=== PATIENT | male | born 1990 | race Caucasian/White ===

== ENCOUNTER 2019-03-19 00:24 | Emergency (ER) | payer MEDICAID ==
[~2019-03-19] VITALS: Ht 175.3 cm; Wt 82.5 kg
[~2019-03-19 00:24] MED LIST: ALBU8.5H8 IH; AZIT250T PO; DIAZ5TAB PO; IBUP-1984 PO
[2019-03-19 00:28] VITALS: BP 132/76
[2019-03-19] MEDS ORDERED: PENI500T2 PO (02:16)
[2019-03-19] MEDS ORDERED: IBUP-1984 PO (02:16)
[2019-03-19] MEDS ORDERED: HYDR-4384 PO (22:19)
[2019-03-19] MEDS ORDERED: CLIN-96 PO (22:19)
== END 2019-03-19 02:24 | disposition home or self-care (01) ==
LOC: MERGE 00:25 → ER 00:25
DX: K02.9 Dental caries, unspecified (principal); F17.200 Nicotine dependence, unspecified, uncomplicated; Z79.899 Other long term (current) drug therapy
CPT/HCPCS: 99283

== ENCOUNTER 2019-03-19 21:56 | Emergency (ER) | payer MEDICAID ==
[~2019-03-19] VITALS: Ht 175.3 cm; Wt 75.0 kg
[~2019-03-19 21:56] MED LIST changes: +PENI500T2 PO
[2019-03-19 22:01] VITALS: BP 146/92
[2019-03-19] MEDS ORDERED: clindamycin phosphate 150mg/ml inj. IM ONE (22:15)
[2019-03-19] MEDS ORDERED: CLIN-96 PO (22:19)
[2019-03-19] MEDS ORDERED: HYDR-4384 PO (22:19)
[2019-03-19] MEDS ORDERED: HYDROcodone/acetaminophen 5mg/325mg tablet PO ONE (22:20)
== END 2019-03-19 22:31 | disposition home or self-care (01) ==
LOC: ER 21:56 → MERGE 21:56 → ER 22:31
DX: K02.9 Dental caries, unspecified (principal); F17.200 Nicotine dependence, unspecified, uncomplicated; Z79.2 Long term (current) use of antibiotics; Z79.899 Other long term (current) drug therapy
CPT/HCPCS: 96372; 99283; J3490

== ENCOUNTER 2020-11-19 15:05 | Emergency (ER) | payer MEDICAID ==
[~2020-11-19] VITALS: Ht 177.8 cm; Wt 86.8 kg
[~2020-11-19 15:05] MED LIST changes: +CLIN-97 PO; -PENI500T2 PO
[2020-11-19 15:11] VITALS: BP 150/80
[2020-11-19 15:59] LABS: BASOPHILS % (AUTO) 0.4 % (0-1); EOSINOPHILS # (AUTO) 0.3 X10'3 (0-0.9); EOSINOPHILS % (AUTO) 2.8 % (0-6); HEMATOCRIT 49.6 % (42.0-52.0); HEMOGLOBIN 16.9 g/dl (14.0-17.9); LYMPHOCYTES # (AUTO) 2.6 X10'3 (1.1-4.8); LYMPHOCYTES % (AUTO) 23.7 % (21-51); MEAN CORPUSCULAR HEMOGLOBIN 32.1 PG (27.0-31.0); MEAN CORPUSCULAR HGB CONC 34.1 g/dL (33.0-36.5); MEAN PLATELET VOLUME 9.1 FL (7.4-10.4); MONOCYTES # (AUTO) 0.7 X10'3 (0-0.9); MONOCYTES % (AUTO) 6.6 % (2-12); NEUTROPHILS # (AUTO) 7.2 X10'3 (1.8-7.7); NEUTROPHILS % (AUTO) 66.5 % (42-75); PLATELET COUNT 171 X10'3 (140-440); RED BLOOD COUNT 5.27 X10'6 (4.70-6.10); RED CELL DISTRIBUTION WIDTH 13.5 % (11.5-14.5); WHITE BLOOD COUNT 10.8 X10'3 (4.5-11.0)
[2020-11-19 16:00] LABS: CLARITY,URINE CLEAR (Clear); COLOR,URINE YELLOW (Yellow); GLUCOSE, URINE NEGATIVE (Neg); KETONES,URINE NEGATIVE (Neg); LEUKOCYTE ESTERASE ,URINE NEGATIVE (Neg); NITRITES, URINE NEGATIVE (Neg); OCCULT BLOOD,URINE NEGATIVE (Neg); PROTEIN,URINE NEGATIVE (Neg)
[2020-11-19 16:01] LABS: UA COLLECTION TYPE CLN CATCH MIDSTREAM
[2020-11-19 16:22] LABS: ALANINE AMINOTRANSFERASE 91 U/L (12-78); ALBUMIN/GLOBULIN RATIO 1.3 (1.1-1.5); ALKALINE PHOSPHATASE 85 IU/L (46-116); ANION GAP 8 (8-16); ASPARTATE AMINO TRANSFERASE 36 U/L (10-37); BILIRUBIN,TOTAL 0.5 MG/DL (0.1-1.0); BLOOD UREA NITROGEN 10 MG/DL (7-18); BUN/CREATININE RATIO 8.8 (5.4-32.0); CALCIUM 8.9 MG/DL (8.5-10.1); CHLORIDE 104 MMOL/L (99-107); CREATININE 1.14 MG/DL (0.60-1.10); GLUCOSE 118 MG/DL (70-104); POTASSIUM 3.8 MMOL/L (3.5-5.1); SODIUM 142 MMOL/L (135-145); TOTAL CARBON DIOXIDE 30.2 MMOL/L (24-32); TOTAL PROTEIN 7.2 G/DL (6.4-8.2); eGFR 75 ML/MIN
[2020-11-19 16:24] LABS: AMYLASE 19 U/L (25-115); LIPASE 58 U/L (73-393)
== END 2020-11-19 18:28 | disposition left against medical advice (07) ==
LOC: ER 15:06
DX: R10.9 Unspecified abdominal pain (principal); Z53.21 Procedure and treatment not carried out due to patient leaving prior to being seen by health care provider
CPT/HCPCS: 36415; 80053; 81003; 82150; 83690; 85025

== ENCOUNTER 2020-12-25 16:58 | Emergency (ER) | payer MEDICAID ==
[~2020-12-25] VITALS: Ht 175.3 cm; Wt 86.9 kg
[2020-12-25 17:09] VITALS: BP 135/74
[2020-12-25 17:39] LABS: BASOPHILS % (AUTO) 0.3 % (0-1); EOSINOPHILS # (AUTO) 0.3 X10'3 (0-0.9); HEMATOCRIT 48.2 % (42.0-52.0); HEMOGLOBIN 16.3 g/dl (14.0-17.9); LYMPHOCYTES # (AUTO) 2.5 X10'3 (1.1-4.8); LYMPHOCYTES % (AUTO) 29.4 % (21-51); MEAN CORPUSCULAR HEMOGLOBIN 31.7 PG (27.0-31.0); MEAN CORPUSCULAR HGB CONC 33.9 g/dL (33.0-36.5); MEAN CORPUSCULAR VOLUME 93.5 FL (78-98); MONOCYTES # (AUTO) 0.5 X10'3 (0-0.9); MONOCYTES % (AUTO) 6.1 % (2-12); NEUTROPHILS # (AUTO) 5.1 X10'3 (1.8-7.7); NEUTROPHILS % (AUTO) 60.2 % (42-75); PLATELET COUNT 183 X10'3 (140-440); RED BLOOD COUNT 5.16 X10'6 (4.70-6.10); RED CELL DISTRIBUTION WIDTH 13.5 % (11.5-14.5); WHITE BLOOD COUNT 8.5 X10'3 (4.5-11.0)
[2020-12-25 17:57] LABS: ALANINE AMINOTRANSFERASE 81 U/L (12-78); ALBUMIN 3.7 G/DL (3.4-5.0); ALBUMIN/GLOBULIN RATIO 1.2 (1.1-1.5); ALKALINE PHOSPHATASE 69 IU/L (46-116); ANION GAP 9 (8-16); ASPARTATE AMINO TRANSFERASE 28 U/L (10-37); BILIRUBIN,TOTAL 0.3 MG/DL (0.1-1.0); BLOOD UREA NITROGEN 10 MG/DL (7-18); BUN/CREATININE RATIO 8.8 (5.4-32.0); CALCIUM 8.7 MG/DL (8.5-10.1); CHLORIDE 106 MMOL/L (99-107); CREATININE 1.13 MG/DL (0.60-1.10); GLUCOSE 135 MG/DL (70-104); LIPASE 74 U/L (73-393); POTASSIUM 3.6 MMOL/L (3.5-5.1); SODIUM 141 MMOL/L (135-145); TOTAL CARBON DIOXIDE 26.1 MMOL/L (24-32); TOTAL PROTEIN 6.9 G/DL (6.4-8.2); eGFR 76 ML/MIN
== END 2020-12-26 02:52 | disposition left against medical advice (07) ==
LOC: ER 16:59
DX: R10.9 Unspecified abdominal pain (principal); Z53.21 Procedure and treatment not carried out due to patient leaving prior to being seen by health care provider
CPT/HCPCS: 36415; 80053; 83690; 85025

== ENCOUNTER 2021-03-14 05:17 | Emergency (ER) | payer MEDICAID ==
[~2021-03-14] VITALS: Ht 175.3 cm; Wt 81.8 kg
[~2021-03-14 05:17] MED LIST changes: +ALBU8.5H17 IH; -ALBU8.5H8 IH
[2021-03-14 05:31] VITALS: BP 148/98
[2021-03-14] MEDS ORDERED: PENI500T2 PO (05:49)
== END 2021-03-14 06:12 | disposition home or self-care (01) ==
LOC: ER 05:17
DX: K08.89 Other specified disorders of teeth and supporting structures (principal); J45.909 Unspecified asthma, uncomplicated; G89.29 Other chronic pain; Z87.01 Personal history of pneumonia (recurrent); Z98.890 Other specified postprocedural states; Z72.89 Other problems related to lifestyle; Z56.0 Unemployment, unspecified; Z79.2 Long term (current) use of antibiotics; Z79.899 Other long term (current) drug therapy
CPT/HCPCS: 99283

== ENCOUNTER 2022-02-18 15:02 | Emergency (ER) | payer MEDICAID ==
[~2022-02-18] VITALS: Ht 175.3 cm; Wt 89.5 kg
[2022-02-18 15:16] VITALS: BP 142/87
== END 2022-02-18 17:21 | disposition left against medical advice (07) ==
LOC: ER 15:03
DX: R07.81 Pleurodynia (principal); Z53.21 Procedure and treatment not carried out due to patient leaving prior to being seen by health care provider
CPT/HCPCS: 71046

== ENCOUNTER 2022-02-28 23:05 | Emergency (ER) | payer MEDICAID ==
[~2022-02-28] VITALS: Ht 177.8 cm; Wt 87.6 kg
[2022-03-01] MEDS ORDERED: dexamethasone 4mg tablet PO ONE (01:35)
[2022-03-01] MEDS ORDERED: acetaminophen 325mg tablet PO ONE (01:35)
[2022-03-01] MEDS ORDERED: ALBU6.7H9 INH (01:35)
[2022-03-01] MEDS ORDERED: albuterol 2.5 MG/3 ML nebule NEB ONE (01:35)
[2022-03-01 02:55] VITALS: BP 120/74
== END 2022-03-01 02:57 | disposition home or self-care (01) ==
LOC: ER 23:05
DX: J06.9 Acute upper respiratory infection, unspecified (principal); B34.9 Viral infection, unspecified; G89.29 Other chronic pain; M54.9 Dorsalgia, unspecified; J45.909 Unspecified asthma, uncomplicated; Z56.0 Unemployment, unspecified; Z98.890 Other specified postprocedural states; Z79.899 Other long term (current) drug therapy; Z79.1 Long term (current) use of non-steroidal anti-inflammatories (NSAID)
CPT/HCPCS: 71046; 93005; 94640; 99283

== ENCOUNTER 2023-07-25 13:10 | Emergency (ER) | payer MEDICAID ==
[~2023-07-25] VITALS: Ht 175.3 cm; Wt 84.0 kg
[~2023-07-25 13:10] MED LIST changes: +ALBU6.7H14 INH
[2023-07-25 13:14] VITALS: BP 138/84; PULSE 105; RESP 18; TEMP 97.6; O2SAT 100
[2023-07-25] MEDS ORDERED: acetaminophen 325mg tablet PO ONE (13:45)
[2023-07-25] MEDS ORDERED: cephalexin 250mg capsule PO ONE (13:45)
[2023-07-25] MEDS ORDERED: CEPH500C82 PO (13:46)
== END 2023-07-25 14:52 | disposition home or self-care (01) ==
LOC: ER 13:11
DX: L03.811 Cellulitis of head [any part, except face] (principal); R51.9 Headache, unspecified; I10 Essential (primary) hypertension; J45.909 Unspecified asthma, uncomplicated; Z79.2 Long term (current) use of antibiotics; Z79.899 Other long term (current) drug therapy
CPT/HCPCS: 99283

== ENCOUNTER 2025-05-17 09:29 | Inpatient (IN) | payer MEDICAID ==
[~2025-05-17] VITALS: Ht 175.3 cm; Wt 84.3 kg
[~2025-05-17 09:29] MED LIST changes: +CLIN-224 PO; -CLIN-97 PO
[2025-05-17 11:37] LABS: MEAN PLATELET VOLUME 8.6 FL (7.4-10.4); RED CELL DISTRIBUTION WIDTH 13.0 % (11.5-14.5)
[2025-05-17 11:51] LABS: CREATININE 1.12 MG/DL (0.60-1.10); TOTAL CARBON DIOXIDE 32.2 MMOL/L (24-32); eCRCL 92 ML/MIN; eGFR 75 ML/MIN
[2025-05-17] MEDS ORDERED: iohexol 300mg/ml 100ml inj. ONE (12:28)
--- NOTE | 2025-05-17 12:38 | Physician Documentation ---
History of Present Illness ~ Chief Complaint: Abscess Stated Complaint: R ARM INFECTION Time Seen by MD: 10:38 Primary Medical Doctor: [facility] HPI Patient is a 34-year-old male that presents to the emergency department for evaluation of right elbow pain x3 days. Patient reports he has an area of swelling on his elbow it has become progressively painful over the last couple of days. Patient reports warmth difficulty with range of motion but is able to demonstrate range of motion here in the emergency department. Patient denies fever chills nausea vomiting diarrhea does report being very cold but is not sure that he has had chills. Patient is a feeling of infection and feels like it is starting to go through his body and not stay localized to his arm. Patient appears very lethargic here in the emergency department. Vital signs are currently stable. Patient denies any illicit drug use or alcohol use at this time. Patient is very pleasant and cooperative. Due to presentation. Concern for severe cellulitis or or abscess versus septic joint at this time. Tetanus Within 5 Years: No (UNK) Medication Reconciliation Allergies: Coded Allergies: No Known Allergies (Unverified , 05/17/25) Scheduled Albuterol Sulfate (Proventil Hfa), 2 PUFFS INH Q6H Azithromycin (Zithromax), 1 DOSPAK PO UD Clindamycin HCL* (Clindamycin HCL*), 1 CAP PO Q6H Diazepam (Valium), 1 TABLET PO BID Scheduled PRN Albuterol Sulfate (Proair Hfa), 2 PUFFS IH Q4H PRN for SOB or wheezing Ibuprofen* (Motrin*), 800 MG PO TID PRN Past Medical History Past Medical History: Hypertension, Asthma, Pneumonia, Hernia, Chronic Back Pain Past Surgical History: abdominal surgery Other Past Surgical History: hernia Smoking Status: Never smoker Alcohol Use: Occasionally Drug Use: none Lives with: S/O Lives In: Home Occupation: unemployed Review of Systems ROS As stated above in the HPI, otherwise all systems are reviewed and negative. Physical Exam Vital Signs: Temperature: 97.3, Source: Temporal, Heart Rate: 95, Respiratory Rate: 18, BP: 143/75, Pulse Oximetry: 98, Weight: 84.300 Physical Exam VITALS: Reviewed and as above. GENERAL: Alert, no apparent distress. HEENT: Normocephalic, atraumatic, PERRL, EOMI, dry mucosa, no erythema RESPIRATORY: Lungs clear, normal breath sounds, no respiratory distress. CHEST: No accessory muscle use, no retractions CV: Regular rate, rhythm, no edema, no murmur, No: JVD GI: Soft, non-tender, bowels sounds present, no rebound, guarding, or rigidity BACK: No CVA tenderness, or swelling MUSCULOSKELETAL No deformities, no edema SKIN: Warm and dry, significant area of erythema warmth and edema noted to the right elbow, patient is able to demonstrate range of motion although reduced, patient reports significant pain during examination. NEURO: Oriented x4, No motor or sensory deficit PSYCH: Normal mood and affect, no agitation Progress Results/Orders Results/Orders Orders - RUTH ANN BARLOW PIPE THREADER Ct Upper Extremities (05/17/25 12:38) Culture Blood (05/17/25 12:39) Us Non Vascular (05/17/25 ) Completed Orders - RUTH ANN BARLOW P[employer] Cbc/Diff (05/17/25 11:15) CMP (05/17/25 11:15) Ct Upper Extremities (05/17/25 12:38) Iohexol 300mg/Ml 100ml Inj. (Omnipaque-3 (05/17/25 12:28) ESR (05/17/25 12:39) LA (05/17/25 12:39) Normal Saline 1000ml (0.9% Sodium Chlori (05/17/25 12:50) C-Reactive Protein (05/17/25 11:23) Us Non Vascular (05/17/25 ) Medications Received in ER Medications (Trade) Dose Ordered Sig/Anju Route PRN Reason Start Time Stop Time Status Last Admin Dose Admin Sodium Chloride 1,000 ml @ 1,000 mls/hr ONCE ONCE IV 05/17/25 12:50 05/17/25 13:49 DC 05/17/25 13:51 1,000 MLS/HR Ceftriaxone Sodium/Dextrose 50 ml @ 100 mls/hr ONCE ONCE IV 05/17/25 13:15 05/17/25 13:44 DC 05/17/25 13:51 100 MLS/HR Vancomycin HCl 250 ml @ 166 mls/hr ONCE ONCE IV 05/17/25 13:15 05/17/25 14:45 DC 05/17/25 13:59 166 MLS/HR Vital Signs 05/17/25 05/17/25 05/17/25 05/17/25 09:40 12:35 14:06 14:49 Temp 97.3 97.8 Pulse 95 100 97 93 Resp 18 16 18 24 B/P (MAP) 143/75 142/78 (99) 129/68 (88) 128/64 (85) Pulse Ox 98 97 97 94 O2 Flow Rate 0 0 0 05/17/25 14:49 Resp 16 B/P (MAP) Laboratory Tests Test 05/17/25 11:23 White Blood Count 14.4 H Red Blood Count 4.88 Hemoglobin 15.4 Hematocrit 44.1 Mean Corpuscular Volume 90.4 Mean Corpuscular Hemoglobin 31.5 H Mean Corpuscular Hemoglobin Concent 34.9 Red Cell Distribution Width 13.0 Platelet Count 197 Mean Platelet Volume 8.6 Neutrophils (%) (Auto) 77.5 H Lymphocytes (%) (Auto) 14.6 L Monocytes (%) (Auto) 6.3 Eosinophils (%) (Auto) 1.2 Basophils (%) (Auto) 0.4 Neutrophils # (Auto) 11.2 H Lymphocytes # (Auto) 2.1 Monocytes # (Auto) 0.9 Eosinophils # (Auto) 0.2 Basophils # (Auto) 0.1 CBC Comment Erythrocyte Sedimentation Rate 7 Sodium Level 138 Potassium Level 4.1 Chloride Level 100 Carbon Dioxide Level 32.2 H Anion Gap 6 L Blood Urea Nitrogen 10 Creatinine 1.12 H Estimated GFR/1.73 m2 75 BUN/Creatinine Ratio 8.9 L Glucose Level 101 Lactic Acid Level 0.6 Calcium Level 8.8 Total Bilirubin 0.6 Aspartate Amino Transf (AST/SGOT) 18 Alanine Aminotransferase (ALT/SGPT) 28 Alkaline Phosphatase 93 C-Reactive Protein 4.83 H Total Protein 7.7 Albumin 4.1 Globulin 3.6 Albumin/Globulin Ratio 1.1 Chemistry Comments Microbiology Date/Time Source Procedure Growth Status 05/17/25 11:23 Blood Arm Left Blood Culture - Preliminary NEGATIVE (LESS THAN 24 HOURS) Resulted Medical Decision Making Additional information obtaine: other Findings 34-year-old male presents with 3 days of right elbow pain, progressive swelling, warmth, and decreased range of motion. He denies fever, chills, nausea, vomiti ng, or diarrhea, but reports chills and lethargy. He is concerned about infection spread. On exam, the elbow is erythematous, swollen, and tender with limited ROM. He experienced transient hypotension after IV placement and remains lethargic, though vital signs are currently stable. No history of IVDU or alcohol use. Differential diagnosis includes: Septic arthritis of the elbow Complicated soft tissue abscess Cellulitis with deep extension Olecranon bursitis (septic) Osteomyelitis Medical decision-making: Septic arthritis is an orthopedic emergency requiring prompt diagnosis and intervention to prevent joint destruction and systemic complications. The clinical presentation (acute monoarticular pain, swelling, warmth, restricted ROM, and systemic symptoms) is highly concerning for septic arthritis, though complicated abscess remains in the differential. Physical exam and history are suggestive but not definitive; laboratory markers (WBC, ESR, CRP) may support diagnosis but are not specific. Arthrocentesis is the gold standard for diagnosis, with synovial WBC >50,000/mm and positive Gram stain/culture supporting septic arthritis. Bcwcc-fg-oped ultrasound may help distinguish abscess from joint effusion, but cross-sectional imaging (CT or MRI) is indicated if the diagnosis remains unclear or to evaluate for deep abscess, osteomyelitis, or soft tissue involvement. Blood cultures should be obtained prior to antibiotics. If septic arthritis is suspected, empiric IV antibiotics should be started promptly after cultures, as per Infectious Diseases Society of [place] recommendations. Early orthopedic consultation is warranted for possible surgical irrigation and debridement if septic arthritis is confirmed or if there is a deep abscess requiring source control. Empiric antibiotics should cover Staphylococcus aureus (including MRSA) and Streptococcus species, as these are the most common pathogens in septic elbow and complicated abscesses. Monitor for clinical instability given the episode of hypotension and ongoing lethargy, which may indicate early sepsis or systemic involvement. Plan: Labs: CBC, ESR, CRP, blood cultures, basic metabolic panel. Imaging: Sqitb-vu-bhsv ultrasound of elbow; consider CT/MRI if diagnosis remains unclear or to evaluate for deep infection. Arthrocentesis of elbow joint for cell count, Gram stain, culture, and crystals. Initiate empiric IV antibiotics after cultures obtained. Orthopedic consult for possible surgical intervention. Monitor hemodynamics and reassess for clinical deterioration. Risk/benefit discussion: The risk of delayed diagnosis and treatment of septic arthritis includes irreversible joint damage, systemic sepsis, and increased morbidity. Early intervention is essential for optimal outcomes. Differential Dx:Considerations: Include: Abscess, Bacteremia, Cellulitis, Erysipelas, Felon, Gas gangrene, Hidrademitis suppurativa, Impetigo, Lymphangitis, Osteromyelitis, Paronychia, Septicemia, Other Departure Disposition: 09 ADMITTED INPATIENT Admission Level of Care: Med/Surg Impression: Primary Impression: Cellulitis Condition: Stable Discharge Instructions: Cellulitis, Adult, [id number]-[id number] Additional Instructions: Admit to hospital for evaluation and management of right elbow infection (cellulitis/abscess/septic joint). Isolation: Standard precautions. Vital signs: Monitor every 4 hours; alert provider for fever, tachycardia, hypotension, or respiratory distress. IV access: Establish for fluids, labs, and antibiotics. Laboratory studies: CBC with differential, CMP, blood cultures prior to antibiotics, ESR/CRP, lactate. Consider synovial fluid analysis if joint effusion is present. Imaging: Obtain ezqls-en-nbte ultrasound of the right elbow to assess for abscess, bursal fluid, or joint effusion. X-ray if concern for osteomyelitis. Consults: Early orthopedic or general surgery consult if septic joint or abscess suspected. Antibiotics: Start empiric IV antibiotics with coverage for streptococci and MSSA. If severe infection or risk factors for MRSA (rapid progression, immunocompromise, prior MRSA, injection drug use), initiate vancomycin plus piperacillin-tazobactam or cefepime per IDSA guidelines. Wound care: Elevate affected limb. Pako area of erythema for monitoring progression. If abscess confirmed, arrange for incision and drainage. Monitoring: Assess for clinical improvement within 48-72 hours. Extend antibiotics if no improvement at 5 days. Other: Maintain hydration and pain control. Monitor for signs of necrotizing infection (rapid progression, severe pain, systemic toxicity). Patient education: Explain diagnosis, treatment plan, and warning signs for worsening infection. Rationale: Admission is indicated due to lethargy, progressive symptoms, and concern for severe soft tissue infection or septic joint, requiring IV antibiotics, close monitoring, and possible surgical intervention. Referrals: NO PRIMARY CARE PROVIDER (PCP) Education Educated: Patient Educated regarding: diagnosis, treatment, need for follow up Signature Scribe Signature: A Attestation: Scribed for Ruth Ann Barlow by JUANCARLOS Paredes . 05/17/25 15:57 RUTH ANN BARLOW May 17, 2025 12:37
--- NOTE | 2025-05-17 13:00 | RADIOLOGY REPORT ---
COMPUTERIZED TOMOGRAPHY OF THE RIGHT UPPER EXTREMITY WITH CONTRAST REASON FOR EXAM: Elbow COMPARISON: None TECHNIQUE: The exam was performed on a Multidetector scanner. Spiral scans were acquired THROUGH THE RIGHT ELBOW after administration of IV contrast. 2-D coronal and sagittal reformatted images were provided. Radiation optimization: All CT scans at this facility use at least one of these dose optimization techniques: Automated exposure control mA and/or kV adjustment per patient size (includes targeted exams where dose is matched to clinical indication) or iterative reconstruction. CONTRAST ADMINISTRATION: 100 mL OMNIPAQUE 300 intravenously RADIATION DOSE: CTDI: 3 mGy DLP: 111 mGy-cm FINDINGS: There is no acute fracture or dislocation. No bony cortical erosion is identified. There is no elbow joint effusion. There is severe edema in the subcutaneous fat dorsal to the elbow with overlying skin thickening. There is no organized fluid collection currently. There is no abnormal muscular enhancement. IMPRESSION: Severe edema of the soft tissues dorsal to the elbow. No organized fluid collection at this time.
[2025-05-17] MEDS ORDERED: CefTRIAXone/D5W-Rocephin 1gm 50 ML IV ONE (13:05)
[2025-05-17] MEDS: CefTRIAXone 2gm/D5W 50ml BAG 50 ML IV ONE (13:51)
[2025-05-17] MEDS: normal saline 1000ml 1,000 ML IV ONE (13:51)
[2025-05-17] MEDS: vancomycin/NS 1 GM ADD-VANTAGE 250 ML IV ONE (13:59)
--- NOTE | 2025-05-17 14:29 | RADIOLOGY REPORT ---
ULTRASOUND SOFT TISSUE: REASON FOR EXAM: Right elbow swelling/erythema TECHNIQUE: Real-time sector scans in the transverse and longitudinal planes were obtained through the area of concern at the dorsal aspect of the right elbow. FINDINGS: There is diffuse and severe edema in the subcutaneous fat at the dorsum of the elbow. There is no fluid collection identified. There is hyperemia of the edematous tissue. IMPRESSION: Severe edema of the soft tissues at the dorsum of the elbow. No abscess is identified. Findings are concerning for cellulitis.
[2025-05-17] MEDS ORDERED: NO HOME MEDS (16:09)
[2025-05-17] MEDS ORDERED: potassium Cl 20 mEq SR tablet PO PRN ×2 (16:30)
[2025-05-17] MEDS ORDERED: magnesium Cl slow-release 64mg tablet PO PRN (16:30)
[2025-05-17] MEDS ORDERED: HYDROcodone/acetaminophen 5mg/325mg tablet PO PRN (16:30)
[2025-05-17] MEDS ORDERED: magnesium sulf-water 2g/50mL 50 ML IV PRN (16:30)
[2025-05-17] MEDS ORDERED: potassium Cl 40MEQ/1/2NS 520ml 520 ML IV PRN (16:30)
[2025-05-17] MEDS ORDERED: magnesium sulf-water 4G/100mL 100 ML IV PRN (16:30)
[2025-05-17] MEDS ORDERED: ondansetron/PF 4mg/2ml inj IV PRN (16:30)
--- NOTE | 2025-05-17 16:30 | HISTORY AND PHYSICAL ---
History & Physical Providers to ~ History of Present Illness Reason for Admit\Complaint: RIGHT ELBOW PAIN History of Present Illness 34 years old male presented to the ER for evaluation of right elbow pain x3 days. Patient states that it started with an area of swelling which is now getting progressively worse in his warm with decreased range of motion of his right elbow. He denies having any fever chills nausea vomiting abdominal pain chest pain dysuria frequency urgency hematuria melena or bright red blood per rectum. Patient has been admitted for right elbow cellulitis/ olecranon bursitis . Allergies: Coded Allergies: No Known Allergies (Unverified , 05/17/25) Home Medications Home Medications Active Reported No Home Medications (Home Med List) Each Past Medical History Past Medical History Hypertension, asthma, chronic back pain Past Surgical History Surgical History Comment Abdominal surgery Family History Family History: Family history was reviewed; no changes noted. Past Social History Social History Comment Does not smoke, drinks occasionally, does not do any drugs. Health Maintenance Health Maintenance Not current on his immunizations ROS ROS All other systems are reviewed and negative except as mentioned in HPI Exam Vitals: Vital Signs Date Time Temp Pulse Resp B/P (MAP) Pulse Ox O2 Delivery O2 Flow Rate FiO2 05/17/25 16:09 94 16 106/48 (67) 98 0 05/17/25 14:49 97.8 General: Awake alert cooperative in no acute distress HEENT: Normocephalic atraumatic pupils round reactive to light and accommodation, extraocular movements intact, sclera anicteric, conjunctiva pinkish, moist oral mucosa, no rash or ulcers. Neck: Supple, no JVD, trachea midline, no lymphadenopathy. Chest: Clear to auscultation, no wheezes crackles or rhonchi. Cardiovascular: Regular rate rhythm, no murmur gallop or rub. Abdomen: Soft nontender, no organomegaly. Extremities: No cyanosis clubbing or edema. Central Nervous System: Exam is nonfocal. Musculoskeletal: No joint swelling or deformities Skin: Erythema of the right elbow , with tender indurated swelling and erythema extending up the arm and on the forearm. Diagnostic Data Last Recorded Lab Results: 05/17/25 1123 05/17/25 1123 Additional Plan 34 years old male presented to the ER for evaluation of right elbow pain and swelling # right elbow cellulitis: Start on IV antibiotics . Patient failed outpatient antibiotic treatment. # hypertension: IV hydralazine. # Code status: Full code Date of Service: May 17, 2025 Billing Provider: MELONIE MAURER MD Common Visit Codes: [id number] INP/OBS CARE (MOD) MELONIE MAURER MD May 17, 2025 16:29
[2025-05-17] MEDS: normal saline 1000ml 1,000 ML IV SCH (17:50)
[2025-05-17] MEDS: VANCOMYCIN 2GM/400ML H20 (PEG) 400 ML IV ONE (17:50)
[2025-05-17] MEDS: K and/or MAG REPLACEMENT MC SCH (18:50)
[2025-05-17] MEDS: docusate sod 100mg capsule PO SCH (18:51)
[2025-05-17 22:00] VITALS: BP 130/51; PULSE 91; RESP 16; TEMP 99.1; O2SAT 97
[2025-05-17 22:11] VITALS: RESP 16; O2SAT 97
[2025-05-18] MEDS: VANCOmycin 1250MG/NS 250ml Bag 250 ML IV SCH (04:40)
[2025-05-18 05:00] VITALS: BP 118/67; PULSE 88; RESP 16; TEMP 99.4; O2SAT 97
[2025-05-18 05:08] LABS: MEAN PLATELET VOLUME 8.6 FL (7.4-10.4); RED CELL DISTRIBUTION WIDTH 13.2 % (11.5-14.5)
[2025-05-18 05:22] LABS: CREATININE 0.97 MG/DL (0.60-1.10); TOTAL CARBON DIOXIDE 31.6 MMOL/L (24-32); eCRCL 106 ML/MIN; eGFR 88 ML/MIN
[2025-05-18 10:00] VITALS: BP 125/60; PULSE 55; RESP 21; TEMP 97.4; O2SAT 100
[2025-05-18] MEDS: FLU VACC TS2025-26(6MOS UP)/PF (FLULAVAL) 45 MCG/0.5 ML SYRINGE IMVAC ONE (12:00)
--- NOTE | 2025-05-18 15:04 | PROGRESS NOTE ---
Daily Progress Note Providers to CC ~ Antibiotic Timeout Antibiotic Ordered?: Yes Subjective No new complaints, patient is seen resting comfortably. Objective Vital Signs Date Time Temp Pulse Resp B/P (MAP) Pulse Ox O2 Delivery O2 Flow Rate FiO2 05/18/25 10:00 97.4 55 21 125/60 (81) 100 Room Air 05/18/25 08:20 0.0 Result Diagram: 05/18/2543505/18/25435 Awake alert oriented HEENT normocephalic atraumatic Neck supple, no JVD Chest CTA , No wheezes crackles or rhonchi Heart RRR Abdomen soft , nontender no organomegaly No C/C/E Nonfocal Right elbow swelling, tender induration, erythema extending up the arm and on the forearm. Other Results Medications reviewed Problem\Assessment\Plan 34 years old male presented to the ER for evaluation of right arm pain and swelling # right elbow cellulitis: Continue IV vancomycin. With add IV Zosyn. I have left a message for Dr. Erickson and I am awaiting a call back. # Code status Full code. Date of Service: May 18, 2025 Billing Provider: MELONIE MAURER MD Common Visit Codes: [id number] INP/OBS CARE(MOD) MELONIE MAURER MD May 18, 2025 15:04
[2025-05-18] MEDS: piperacillin/tazo 3.375gm/50ml 50 ML IV SCH (16:18)
[2025-05-18 18:00] VITALS: BP 110/74; PULSE 100; RESP 18; TEMP 97.7; O2SAT 100
[2025-05-18 20:00] VITALS: RESP 18; O2SAT 100
[2025-05-18 22:00] VITALS: BP 119/66; PULSE 92; RESP 16; TEMP 98.3; O2SAT 97
[2025-05-19] MEDS: VANCOMYCIN LEVEL IV ONE (04:30)
[2025-05-19 05:57] VITALS: BP 118/63; PULSE 74; RESP 18; TEMP 98.3; O2SAT 97
[2025-05-19 06:46] LABS: MEAN PLATELET VOLUME 9.2 FL (7.4-10.4); RED CELL DISTRIBUTION WIDTH 13.0 % (11.5-14.5)
[2025-05-19 06:52] LABS: CREATININE 1.01 MG/DL (0.60-1.10); TOTAL CARBON DIOXIDE 28.3 MMOL/L (24-32); eCRCL 102 ML/MIN; eGFR 84 ML/MIN
--- NOTE | 2025-05-19 09:59 | CONSULTATION REPORT ---
History of Present Illness Providers to CC ~ Reason for Admit\Admit Dx: RIGHT ELBOW PAIN Refering MD: [place] Count Includes [facility] History of Present Illness Consultation performed on 05/18/2025. History of present illness: 34-year-old male developed significant swelling and pain involving his right upper extremity starting in the elbow extending into his arm forearm distally in the upper arm hole proximally. The presented to the emergency room where he was found diagnosed with potential cellulitis in his right arm. He is placed on the hospitalist service and placed on IV antibiotics. I was consulted for possible orthopedic intervention and recommendations. Subjective: Patient states that over the past 24 hours during this hospitalization his arm pain has started to minimize any starting with the move his elbow better and having less stationary pain. He is very eager to be discharged to home. Objective: There was erythema to his forearm and in the region of the olecranon but no fluctuance. There was no olecranon bursitis. He has excellent range of motion to his ankle without significant pain. No fluctuance was noted to the ulna or posterior aspect of the forearm and/or anteriorly. Antecubital fossa is without fluctuance in the upper arm is also without fluctuance. Neuromotor and vascular supply of the right upper extremities intact. No other extremities were involved. The patient was very compliant and understanding to examination. No active drainage to the upper extremity. A small eschar olecranon which appeared stable X-rays: Are within normal limits labs: Slight decrease in white blood count over the past 24 hours sed rate of seven Assessment: Cellulitis right upper extremity responding to intravenous antibiotics. Plan: Continue IV antibiotic therapy clinical responses slightly more evident anticipate an additional 24 hours of intravenous antibiotics have been helpful and then probable discharge on oral antibiotics. Thank you for the consultation Allergies: Coded Allergies: No Known Allergies (Unverified , 05/17/25) Home Medications Home Medications Active Reported No Home Medications (Home Med List) Each Physical Exam Last Vital Signs Recorded: Temperature: 98.3, Source: Oral, Heart Rate: 74, Respiratory Rate: 18, BP: 118/63, Pulse Oximetry: 97, Weight: 84.300 Results Diagram Lab Result Diagram: 05/19/25 0530 05/19/25 0530 WALTER DONNELLY MD May 19, 2025 09:59
[2025-05-19 10:57] VITALS: BP 131/70; PULSE 94; RESP 18; TEMP 97.4; O2SAT 96
[2025-05-19] MEDS: vancomycin/NS 1 GM ADD-VANTAGE 250 ML IV SCH (13:17)
[2025-05-19] MEDS ORDERED: DOXY-1 PO (15:23)
[2025-05-19] MEDS ORDERED: LEVO-65 PO (15:23)
--- NOTE | 2025-05-19 15:33 | DISCHARGE SUMMARY ---
Discharge Summary Providers to CC ~ Discharge Summary Admission Diagnosis: Right elbow cellulitis Hospital Course DATE OF ADMISSION: 05/17/2025 DATE OF DISCHARGE:05/19/2025 Discharge Diagnosis\Comment: Right elbow/upper extremity cellulitis Operations\Procedures: CT of the right upper extremity Consultants: [place] Complications: None Condition on DC: Stable New Medications: Doxycycline Hyclate (Doxycycline Hyclate) 100 Mg Capsule 1 CAP PO Q12H for 10 Days, #20 CAP Levofloxacin (Levofloxacin) 500 Mg Tablet 1 TAB PO DAILY for 10 Days, #10 TAB Discontinued Medications: Home Med List (No Home Medications) Each Discharge Summary: Reason for admission: Old male presented to the ER for evaluation of right upper extremity cellulitis and pain Please refer to admission H&P for further details Hospital course: Patient was admitted on the monitored floor under hospital course as follows. # right upper extremity cellulitis: Treated with IV vancomycin and Zosyn. Patient has a improvement in his symptoms and erythema has a improved. Patient is able to move his arm a lot better. Dr. Erickson has consulted, patient needs no further intervention again be discharged home on p.o. antibiotics. He is advised to follow up with his PCP #code status: He was kept as a full code Discharge exam: Examined the patient on the day of discharge Awake alert cooperative in no acute distress HEENT normocephalic atraumatic extraocular movements are intact Neck supple, no JVD Chest: Clear to auscultation, no wheezes crackles rhonchi Heart: Regular rate rhythm, no murmur or gallop rub Abdomen is soft nontender no organomegaly Extremities no cyanosis clubbing or edema Neuro exam nonfocal Skin: Improving erythema of the right arm Disposition Home *Problems/Diagnosis: (1) Cellulitis Status: Acute Total Time Spent on D/C: > 30 Minutes Date of Service: May 19, 2025 Billing Provider: MELONIE MAURER MD Common Visit Codes: [id number] DISCH DAY <30MIN MELONIE MAURER MD May 19, 2025 15:33
[2025-05-20] MEDS ORDERED: VANCOMYCIN LEVEL IV ONE (13:30)
== END 2025-05-19 18:30 | disposition home or self-care (01) | DRG 383 ==
LOC: ER 09:30 → ED HOLD 16:45 → SUR 3N 21:38
PROVIDERS: ADMIT Internal Medicine; ATTEND Internal Medicine
PROC: BP2T1ZZ Computerized Tomography (CT Scan) of Right Upper Extremity using Low Osmolar Contrast (ICD-10-PCS; principal; 2025-05-17)
DX: L03.113 Cellulitis of right upper limb (principal); G89.29 Other chronic pain; I10 Essential (primary) hypertension; J45.909 Unspecified asthma, uncomplicated; M54.9 Dorsalgia, unspecified
CPT/HCPCS: 36415; 73201; 76882; 80048; 80053; 80202; 83605; 83735; 85025; 85651; 86140; 87040; 87081; 99285; A6258; G0378; J0696; J2543; J3373; J3374; J3375; J7030; Q9967